=== PATIENT | female | born 1955 | race Two or more races ===

== ENCOUNTER 2022-09-10 00:06 | Emergency (ER) | payer MEDICARE, OTHER ==
[~2022-09-10] VITALS: Ht 162.6 cm; Wt 90.7 kg
[2022-09-10] MEDS ORDERED: ONDANSETRON HCL/PF 4 MG/2 ML VIAL ONE ×2 (00:52→02:20)
[2022-09-10] MEDS ORDERED: MORPHINE SULFATE INJ 4 MG/ML DISP.SYRIN ONE (00:52)
[2022-09-10] MEDS ORDERED: ONDANSETRON HCL/PF 4 MG/2 ML VIAL IV ONE ×2 (01:00→02:30)
[2022-09-10] MEDS ORDERED: IV NS 0.9% 1,000 ML BAG IV ONE (01:00)
[2022-09-10] MEDS ORDERED: MORPHINE SULFATE INJ 2 MG/ML DISP.SYRIN IV ONE (01:00)
[2022-09-10 01:07] LABS: BASOPHILS % (AUTO) 0.4 % (0.0-2.0); EOSINOPHILS % (AUTO) 1.2 % (0.0-6.0); HEMATOCRIT 30 % (33-45); HEMOGLOBIN 9.7 g/dL (11.5-14.8); LYMPHOCYTES # (AUTO) 2.3 K/uL (0.8-4.8); LYMPHOCYTES % (AUTO) 18.3 % (20.0-44.0); MEAN CORPUSCULAR HGB CONC 32 g/dl (31.0-36.0); MEAN CORPUSCULAR VOLUME 84 fL (82-100); MONOCYTES # (AUTO) 0.4 K/uL (0.1-1.30); NEUTROPHILS # (AUTO) 9.5 K/uL (1.8-8.9); NEUTROPHILS % (AUTO) 77.1 % (43.0-81.0); PLATELET COUNT (AUTO) 266 K/uL (150-450); RED BLOOD CELL COUNT(AUTO) 3.57 MIL/uL (4.0-5.2); WHITE BLOOD COUNT (AUTO) 12.3 K/uL (4.3-11.0)
[2022-09-10 01:31] LABS: ALANINE AMINOTRANSFERASE 39 U/L (12-78); ALBUMIN 3.4 g/dL (3.4-5.0); ALKALINE PHOSPHATASE 59 U/L (46-116); ASPARTATE AMINOTRANSFERASE 23 U/L (15-37); BILIRUBIN,DIRECT 0.1 mg/dL (0.0-0.2); BILIRUBIN,TOTAL 0.3 mg/dL (0.2-1.0); CARBON DIOXIDE 22 mmol/L (21-32); CHLORIDE 103 mmol/L (98-107); POTASSIUM 4.8 mmol/L (3.5-5.1); SODIUM SERUM 137 mmol/L (136-145); TOTAL PROTEIN, SERUM 6.7 g/dL (6.4-8.2); UREA NITROGEN, BLOOD 26 mg/dL (7-18)
[2022-09-10 01:41] LABS: GLUCOSE 390 mg/dL (74-106)
[2022-09-10] MEDS ORDERED: IV NS 0.9% 1,000 ML IV ONE (02:00)
[2022-09-10] MEDS ORDERED: IV NS 0.9% 250 ML IV ONE (02:50)
[2022-09-10] MEDS ORDERED: CT SWABBABLE VALVE TRANS SET 1 EA INFUS.SET MC ONE (02:50)
[2022-09-10] MEDS ORDERED: IOHEXOL-300 100 ML VIAL IV ONE (02:50)
--- NOTE | 2022-09-10 03:45 | NUR ---
PT ACCEPTED TO [facility] BY DR GONZALEZ. ROOM 750-2. # FOR REPORT [phone]. PENDING TRANSPORT ETA.
--- NOTE | 2022-09-10 03:55 | NUR ---
REPORT GIVEN TO MARA MARIE FOR MANAV
--- NOTE | 2022-09-10 03:56 | NUR ---
[facility] ETA 0530.
--- NOTE | 2022-09-10 03:57 | NUR ---
PT TAKEN TO CT W/ TECH
[2022-09-10] MEDS ORDERED: diphenhydrAMINE HCL 50 MG/ML VIAL ONE (04:39)
[2022-09-10] MEDS ORDERED: PROCHLORPERAZINE EDISYLATE 10 MG/2 ML VIAL ONE (04:40)
[2022-09-10] MEDS ORDERED: PANTOPRAZOLE 40 MG VIAL ONE (04:40)
[2022-09-10 04:50] VITALS: BP 140/80
--- NOTE | 2022-09-10 04:54 | NUR ---
LACTIC 3.[address] [address] DODSON MADE AWARE.
[2022-09-10 04:58] LABS: BILIRUBIN,URINE NEGATIVE (NEGATIVE); COLOR,URINE DARK YELLOW (YELLOW); LEUKOCYTE ESTERASE ,URINE NEGATIVE (NEGATIVE); NITRITE, URINE NEGATIVE (NEGATIVE); PH,URINE 5.5 (5.0-8.0); PROTEIN,URINE 1+ mg/dl (NEGATIVE); UGLUCOSE 3+ mg/dL (NEGATIVE); UROBILINOGEN,URINE 0.2 EU/dL (0.2)
[2022-09-10] MEDS ORDERED: PANTOPRAZOLE 80 MG in IV NS 0.9% 500 ML IV ONE (05:00)
[2022-09-10] MEDS ORDERED: PROCHLORPERAZINE EDISYLATE 10 MG/2 ML VIAL IVP ONE (05:00)
[2022-09-10] MEDS ORDERED: diphenhydrAMINE HCL 50 MG/ML VIAL IV ONE (05:00)
[2022-09-10 05:02] LABS: BACTERIA,URINE Rare /HPF (None Seen); SQUAMOUS EPITHELIAL CELL,UR Few /HPF (None Seen)
--- NOTE | 2022-09-10 06:05 | NUR ---
PICKED UP BY TRANSPORT IN STABLE CONDITION
== END 2022-09-10 06:07 | disposition short-term general hospital (02) ==
LOC: ER 00:08
DX: K92.2 Gastrointestinal hemorrhage, unspecified (principal); R55 Syncope and collapse; E11.65 Type 2 diabetes mellitus with hyperglycemia; R11.2 Nausea with vomiting, unspecified; E87.20 Acidosis, unspecified; I10 Essential (primary) hypertension; E03.9 Hypothyroidism, unspecified; M19.90 Unspecified osteoarthritis, unspecified site; Z90.710 Acquired absence of both cervix and uterus; Z20.822 Contact with and (suspected) exposure to COVID-19
CPT/HCPCS: 99285; 70450; 96374; 96375; 71045; 96361; 87426; 93005; 96376; 73610; 74177; 85025; 80048; 83605 ×2; 80076; 81001; 36415; 84484; 85730; 86850; J0780; J1200; J2270; J2405 ×2; J7030 ×2; J7050; J7040; Q9967; A4223; C9113; C9803

== ENCOUNTER 2024-03-21 09:33 | Emergency (ER) | payer MEDICARE, OTHER ==
[~2024-03-21] VITALS: Ht 170.2 cm; Wt 92.5 kg
[2024-03-21] MEDS: IV NS 0.9% 1,000 ML BAG IV ONE (10:20)
[2024-03-21] MEDS: ONDANSETRON HCL/PF 4 MG/2 ML VIAL IVP ONE (10:30)
[2024-03-21] MEDS ORDERED: MORPHINE SULFATE INJ 4 MG/ML DISP.SYRIN ONE (10:32)
[2024-03-21] MEDS ORDERED: ONDANSETRON HCL/PF 4 MG/2 ML VIAL ONE (10:32)
[2024-03-21] MEDS: MORPHINE SULFATE INJ 2 MG/ML DISP.SYRIN IV ONE (10:40)
[2024-03-21 11:11] LABS: BASOPHILS % (AUTO) 0.3 % (0.0-2.0); EOSINOPHILS # (AUTO) 0.1 K/uL (0.0-0.7); EOSINOPHILS % (AUTO) 2.4 % (0.0-6.0); HEMATOCRIT 36 % (33-45); HEMOGLOBIN 12.1 g/dL (11.5-14.8); LYMPHOCYTES # (AUTO) 1.7 K/uL (0.8-4.8); MEAN CORPUSCULAR HEMOGLOBIN 27 PG (26.0-33.0); MEAN CORPUSCULAR HGB CONC 33 g/dl (31.0-36.0); MEAN CORPUSCULAR VOLUME 81 fL (82-100); MONOCYTES # (AUTO) 0.3 K/uL (0.1-1.30); MONOCYTES % (AUTO) 5.6 % (2.0-12.0); NEUTROPHILS # (AUTO) 3.5 K/uL (1.8-8.9); NEUTROPHILS % (AUTO) 61.7 % (43.0-81.0); PLATELET COUNT (AUTO) 262 K/uL (150-450); RED BLOOD CELL COUNT(AUTO) 4.47 MIL/uL (4.0-5.2); RED CELL DISTRIBUTION WIDTH 13.6 % (11.5-15.0); WHITE BLOOD COUNT (AUTO) 5.6 K/uL (4.3-11.0)
[2024-03-21 11:22] LABS: APPEARANCE,URINE SLIGHTLY CLOUDY (CLEAR); BILIRUBIN,URINE NEGATIVE (NEGATIVE); BLOOD, URINE 2+ Ery/uL (NEGATIVE); COLOR,URINE YELLOW (YELLOW); KETONES,URINE NEGATIVE (NEGATIVE); LEUKOCYTE ESTERASE ,URINE 1+ (NEGATIVE); NITRITE, URINE NEGATIVE (NEGATIVE); PROTEIN,URINE NEGATIVE (NEGATIVE); UGLUCOSE NEGATIVE (NEGATIVE); UROBILINOGEN,URINE 0.2 EU/dL (0.2)
[2024-03-21 11:36] LABS: ALBUMIN 4.6 g/dL (3.4-5.0); BILIRUBIN,DIRECT 0.2 mg/dL (0.0-0.2); BILIRUBIN,TOTAL 0.3 mg/dL (0.2-1.0); TOTAL PROTEIN, SERUM 7.8 g/dL (6.4-8.2)
[2024-03-21 11:36] LABS: ADD URINE CULTURE YES; BACTERIA,URINE 1+ /HPF (None Seen); MUCUS,URINE Few /LPF (None Seen)
[2024-03-21 11:38] LABS: POTASSIUM 3.9 mmol/L (3.5-5.1)
[2024-03-21 11:39] LABS: CALCIUM, SERUM 9.4 mg/dL (8.5-10.1); CREATININE 1.1 mg/dL (0.6-1.3)
[2024-03-21] MEDS ORDERED: IBUP-1490 PO (13:21)
[2024-03-21] MEDS: CEPHALEXIN MONOHYDRATE 500 MG CAPSULE PO ONE (13:30)
[2024-03-21] MEDS ORDERED: CEPHALEXIN MONOHYDRATE 500 MG CAPSULE PO ONE (13:55)
[2024-03-21 14:15] VITALS: BP 111/89; TEMP 98.1; O2SAT 99
== END 2024-03-21 13:50 | disposition home or self-care (01) ==
LOC: ER 09:39
DX: R82.81 Pyuria (principal); R11.0 Nausea; E11.9 Type 2 diabetes mellitus without complications; I10 Essential (primary) hypertension; M19.90 Unspecified osteoarthritis, unspecified site; Z85.41 Personal history of malignant neoplasm of cervix uteri; Z90.49 Acquired absence of other specified parts of digestive tract; Z90.710 Acquired absence of both cervix and uterus
CPT/HCPCS: 99285; 74176; 96374; 96361; 96375; 85025; 80048; 87086; 83690; 80076; 81001; 36415; J2270; J2405; J7030